=== PATIENT | male | born 2000 | race Caucasian/White ===

== ENCOUNTER 2023-01-28 10:35 | Emergency (ER) | payer BC, SELFPAY ==
[2023-01-28 10:42] VITALS: BP 108/62; PULSE 94; RESP 16; TEMP 36.8; O2SAT 99
--- NOTE | 2023-01-28 11:35 | ED.GENADULT ---
HPI - General Adult General Chief complaint: Upper Respiratory Infection Stated complaint: Cough/Sore Throat Source: patient Mode of arrival: ambulatory Limitations: no limitations History of Present Illness HPI narrative: Patient presents for evaluation of sick symptoms for the last 4 days. Symptoms include productive cough of yellow sputum and sore throat. No chills, nausea, vomiting, diarrhea, SOB. No recent sick contacts to his knowledge. Does use an electronic cigarette and also smokes marijuana. He has been using a throat spray which sounds to be chloraseptic for his symptoms. Related Data Home Medications Medication Instructions Recorded Confirmed No Home Medications 01/28/23 01/28/23 Allergies Allergy/AdvReac Type Severity Reaction Status Date / Time No Known Allergies Allergy Unverified 06/13/20 16:39 Review of Systems Review of Systems: CONSTITUTIONAL: Denies fever, chills, or sweats. EYES: Denies visual changes, redness, or discharge. ENT: Reports sore throat. Denies rhinorrhea, congestion, or otalgia. CARDIOVASCULAR: Denies chest pain, palpitations, or edema. RESPIRATORY: Reports cough. Denies SOB. GASTROINTESTINAL: Denies abdominal pain, nausea, vomiting, or diarrhea. GENITOURINARY: Denies dysuria or hematuria. SKIN: Denies rash or itching. MUSCULOSKELETAL: Denies back pain, joint pain, or myalgia. NEUROLOGIC: Denies headache, numbness, dizziness, or weakness. PSYCHIATRIC: Denies anxiety or depression. PMFSH Past Medical History Medical History No pertinent past medical history Surgical History Surgical History No pertinent past surgical history Family History Family History (Updated 01/28/23 @ 11:39 by Jose Darden, [facility], ) Mother Family history non-contributory Social History Social History Smoking status: Current every day smoker Tobacco type: e-cigarettes/vaping Alcohol intake: never Substance use: current Substance use type: marijuana Gender identity (if verbalized by the patient): Male Spiritual care concerns: No Exam Narrative: GENERAL: Well-appearing, well-nourished, and in no acute distress. HEAD: Normocephalic, atraumatic. EYES: PERRLA and EOMI. ENT: Nares clear, no rhinorrhea or epistaxis. Mucous membranes moist. Oropharynx without tonsillar hypertrophy exudate or other lesions. Bilateral TMs pearly sorto nonbulging NECK: Supple. No adenopathy or masses. No carotid bruits or JVD CHEST: Clear to auscultation. No respiratory distress. No wheezes rales or rhonchi HEART: Regular rate and rhythm. No murmur heard. Normal peripheral pulses. ABDOMEN: Soft, nontender, nondistended, normal active bowel sounds. EXTREMITIES: Normal range of motion. No edema. SKIN: Warm, dry, no rash. NEURO: No focal deficits. Alert and oriented x3. PSYCH: Normal mood and affect. Course Course Emergency Course: This is a 22-year-old male who presented for evaluation of cough and sore throat. Strep, COVID, influenza were all negative. Exam is consistent with acute viral syndrome. Increase hydration. Advised smoking cessation. Mucinex DM may help with current symptoms. Follow up with primary provider. Go to the ER for worsening symptoms. Pt in agreement with plan of care. Level of Care: Express Care Visit Vital Signs Vital signs: Vital Signs Temperature 36.8 C 01/28/23 10:42 Pulse Rate 94 01/28/23 10:42 Respiratory Rate 16 01/28/23 10:42 Blood Pressure 108/62 01/28/23 10:42 Pulse Oximetry 99 01/28/23 10:42 Oxygen Delivery Room Air 01/28/23 10:42 Temperature 36.8 C 01/28/23 10:42 Pulse Rate 94 01/28/23 10:42 Respiratory Rate 16 01/28/23 10:42 Blood Pressure 108/62 01/28/23 10:42 Pulse Oximetry 99 01/28/23 10:42 Oxygen Delivery Ro
== END 2023-01-28 11:40 | disposition home or self-care (01) ==
PROVIDERS: Emergency Provider Nurse Practitioner
DX: B34.9 Viral infection, unspecified (principal); Z20.822 Contact with and (suspected) exposure to COVID-19; F17.290 Nicotine dependence, other tobacco product, uncomplicated; F12.90 Cannabis use, unspecified, uncomplicated
CPT/HCPCS: 87081; 87426; 87804; 87880; 99213; C9803; G0463

== ENCOUNTER 2023-02-28 10:59 | Emergency (ER) | payer BC, SELFPAY ==
[2023-02-28 11:05] VITALS: BP 110/74; PULSE 75; RESP 16; TEMP 36.4; O2SAT 100
--- NOTE | 2023-02-28 11:11 | ED.EYEPROB ---
HPI - Eye Problem General Chief complaint: Eye Problems Stated complaint: Left Eye Irritation Source: patient and RN notes reviewed History of Present Illness HPI Narrative: 22 yo M presents to urgent care with complaints of left eye irritation. Pt states it started yesteday and he thought he had something in his eye. Pt states he woke up with no FB sensation and also states his left eye was matted shut. Denies any visual disturbance, fevers, chills, eye pain, or other symptoms. Related Data Allergies Allergy/AdvReac Type Severity Reaction Status Date / Time No Known Allergies Allergy Unverified 06/13/20 16:39 Review of Systems Review of Systems: CONSTITUTIONAL: Denies fever, chills, or sweats. EYES: Left eye irritation ENT: Denies otalgia and sore throat CARDIOVASCULAR: Denies chest pain, palpitations, or edema. RESPIRATORY: Denies cough or dyspnea. GASTROINTESTINAL: Denies abdominal pain, nausea, vomiting, or diarrhea. GENITOURINARY: Denies dysuria or hematuria. SKIN: Denies rash or itching. MUSCULOSKELETAL: Denies back pain, joint pain, or myalgia. NEUROLOGIC: Denies headache, numbness, or weakness. Pertinent positives per HPI. PMFSH Past Medical History Medical History No pertinent past medical history Surgical History Surgical History No pertinent past surgical history Family History Family History (Updated 01/28/23 @ 11:39 by Jose Darden [facility], ) Mother Family history non-contributory Social History Social History Smoking status: Current every day smoker Tobacco type: e-cigarettes/vaping Alcohol intake: never Substance use: current Substance use type: marijuana Gender identity (if verbalized by the patient): Male Spiritual care concerns: No Comments At the time of my signature, I reviewed and agree with the nursing past medical, surgical, social, and family history. There is no relevant family history pertinent to the patient complaint. Exam Narrative: GENERAL: This is a well-nourished, well-developed patient, in no apparent distress. HEAD: normocephalic, atraumatic. EYES:Left lower conjunctiva injected with dried green drainage to lower lash line. Mild erythema noted to sclera. Mild edema to upper left lid. EARS: External ears normal, auditory canals clear and without drainage, TMs normal without perforation. Hearing grossly intact. NOSE: External nose normal with no obvious nasal discharge, nares without redness, no rhinorrhea. THROAT: Mucous membranes moist, posterior pharynx clear. NECK: Neck supple, non-tender without lymphadenopathy, masses or thyromegaly. CARDIOVASCULAR: Regular rate RESPIRATORY:No respiratory distress SKIN: warm, intact with no suspicious lesions or rash, good texture and turgor. NEURO: awake, alert, and oriented to person, place and time. There were no obvious focal neurologic abnormalities. Course Course Level of Care: Express Care Visit Vital Signs Vital signs: Vital Signs Temperature 97.5 F L 02/28/23 11:05 Pulse Rate 75 02/28/23 11:05 Respiratory Rate 16 02/28/23 11:05 Blood Pressure 110/74 02/28/23 11:05 Pulse Oximetry 100 02/28/23 11:05 Oxygen Delivery Room Air 02/28/23 11:05 Temperature 97.5 F L 02/28/23 11:05 Pulse Rate 75 02/28/23 11:05 Respiratory Rate 16 02/28/23 11:05 Blood Pressure 110/74 02/28/23 11:05 Pulse Oximetry 100 02/28/23 11:05 Oxygen Delivery Room Air 02/28/23 11:05 reviewed MDM - Eye Problem MDM Narrative Medical decision making narrative: Your exam today shows Conjunctivitis, You have been given a prescription for eye drops. Use the eye drops as instructed. If you are not better in two (2) days, you need to follow up with an safety tech. Do not rub the eye or put anything
== END 2023-02-28 11:18 | disposition home or self-care (01) ==
PROVIDERS: Emergency Provider Nurse Practitioner Family
DX: H10.9 Unspecified conjunctivitis (principal); F17.290 Nicotine dependence, other tobacco product, uncomplicated; F12.90 Cannabis use, unspecified, uncomplicated
CPT/HCPCS: 99213; G0463

== ENCOUNTER 2023-04-16 11:07 | Emergency (ER) | payer BC, SELFPAY ==
[2023-04-16 11:15] VITALS: BP 140/76; PULSE 100; RESP 18; TEMP 37.4; O2SAT 100
--- NOTE | 2023-04-16 11:44 | ED.GENADULT ---
HPI - General Adult General Chief complaint: Upper Respiratory Infection Stated complaint: hurts to swallow Source: patient, RN notes reviewed and old records reviewed Mode of arrival: ambulatory Limitations: no limitations History of Present Illness HPI narrative: 20-year-old male presents to Express Care with complaint sore throat, swollen lymph nodes, and swelling on outer right and this started 3 days ago. Patient not taking anything for symptoms. MD complaint: sore throat Onset (ago): day(s) (3-4) Related Data Home Medications Medication Instructions Recorded Confirmed No Home Medications 04/16/23 04/16/23 Allergies Allergy/AdvReac Type Severity Reaction Status Date / Time No Known Allergies Allergy Unverified 04/16/23 11:52 Review of Systems Constitutional: Constitutional: Reports no additional constitutional complaints, Denies body ache(s), Denies chills, Denies fatigue, Denies fever(s) and Denies headache(s) Eyes: Eyes: Reports no additional eye complaints and Denies blurry vision ENT: Reports system reviewed and no additional complaints, except as documented, Denies vertigo, Denies dizziness, Denies ear discharge, Denies otalgia, Denies facial pain, Denies headache(s), Denies nasal congestion, Denies nasal discharge, Denies sinus pain, Denies sinus pressure, Reports sore throat and Reports throat swelling Cardiovascular: Cardiovascular: Reports no additional cardiovascular complaints, Denies chest pain, Denies chest pain at rest, Denies rapid heart rate and Denies dyspnea Respiratory: Respiratory: Reports no additional respiratory complaints, Denies chest congestion, Denies cough, Denies pain on inspiration, Denies pain with cough and Denies dyspnea Gastrointestinal: Gastrointestinal: Denies abdominal pain, Denies diarrhea, Denies nausea and Denies vomiting Integumentary/Breasts: Skin/Breast: Denies rash Neurologic: Reports system reviewed and no additional complaints, except as documented, Denies vertigo, Denies dizziness and Denies headache(s) Endocrine: Endocrine: Denies fatigue PMF Past Medical History Medical History No pertinent past medical history Surgical History Surgical History No pertinent past surgical history Family History Family History Mother Family history non-contributory Social History Social History Smoking status: Current every day smoker Tobacco type: e-cigarettes/vaping Alcohol intake: never Substance use: current Substance use type: marijuana Gender identity (if verbalized by the patient): Male Spiritual care concerns: No Comments At the time of my signature, I reviewed and agree with the nursing past medical, surgical, social, and family history. There is no relevant family history pertinent to the patient complaint. Exam Const: General: cooperative, healthy appearing, no acute distress and well nourished Nutritional Appearance: well nourished Orientation/consciousness: patient oriented x3 Limitations: no limitations HENMT: Head: normal to inspection and normocephalic Ears: external ears normal, TM's normal bilaterally, mastoids normal and Abnormal EAC present Face/Nose/Sinus: normal facial exam Face and sinus: normal facial exam Mouth: Yes Normal oral and palatal mucosa present, Yes oropharynx normal and Yes moist mucous membranes Throat: tonsils normal, uvula midline, posterior oropharynx abnormal erythema and no uvular edema Eyes: General: appearance normal, both eyes and all related structures Sclera: sclerae normal Pupils: Equal, round and reactive pupils present Neck: Neck: lymphadenopathy Resp: Effort & Inspection: normal respiratory effort, able to speak in complete sentences, no audible wheezes, no cough, no r
== END 2023-04-16 12:06 | disposition home or self-care (01) ==
PROVIDERS: Emergency Provider Registered Nurse
DX: J03.90 Acute tonsillitis, unspecified (principal); F17.290 Nicotine dependence, other tobacco product, uncomplicated; F12.90 Cannabis use, unspecified, uncomplicated
CPT/HCPCS: 87081; 87880; 99213; G0463

== ENCOUNTER 2024-09-17 10:41 | Emergency (ER) | payer BC, SELFPAY ==
--- NOTE | ~2024-09-17 | XR_ITS ---
EXAMINATION: XR chest 2V 09/17/2024 13:09 INDICATION: Syncope PROCEDURE: 2 view chest COMPARISON: No prior studies for comparison. FINDINGS: The lungs are clear. The lungs are mildly hyperinflated, which can be associated with react vonnie airway disease. The cardiomediastinal silhouette is within normal limits. There are no pleural effusions. There is no pneumothorax suspected. IMPRESSION: 1: NO ACUTE CARDIOPULMONARY DISEASE. Reviewed, dictated and finalized at location A.
--- OUTSIDE RECORDS SUMMARY | 2024-09-17 10:56 | XMS_ITS | Continuity of Care Document ---
Author Organization [facility] Address [id number] [place] [address] [address] [place] [address] Phone Care Team Providers Care Plant Buyer Name Role Phone Nikolas QUIROZ, Tita Unavailable Unavailable Allergies, Adverse Reactions, Alerts Substance Reaction Status Criticality No Known Allergies Active No Inform ation Medications Medication Instructions Dosage Effective Dates (start - stop) Status Comments Cher 60 mg Tab take 1 tablet (60MG) by oral route 2 times every day - Active Procedures Procedure Date EYE EXAM ESTABLISHED [facility] N/C Glasses Check OFFICE/OUTPATIENT VISIT, EST OFFICE/OUTPATIENT VISIT, EST EYE EXAM & TREATMENT REFRACTION Pt Not Seen Enc Created In Error 2014 OFFICE/OUTPATIENT VISIT, EST SPECIAL EYE EXAM, INITIAL SPECIAL EYE EXAM, INITIAL REFRACTION EYE EXAM ESTABLISHED PAT REFRACTION OFFICE/OUTPATIENT VISIT, NEW REFRACTION Advance Directives Directive Yes / No Effective Date File Name No Information Encounters Encounter Description Practice Location Reason(s) For Visit Diagnoses Date Provider Providers Copied on Encounter [facility], [address] [place] [address] [address], [place], [place], [id number], [place] tel:[phone] OPH CONSULT DIRK MURGUIA Amblyopia OD (chief complaint) Regular astigmatism of both eyesAmblyopia of right eye 3 Nikolas Connorsin. [address], [address], [place], [place], [id number], [place]. tel:[phone] Referring Provider: Rolo Serna, [address] [place], [address]. tel:[phone] [facility], [address] [place] [address], [id number], [place] tel:[phone] OPH CONSULT DIRK MURGUIA amblyopia (chief complaint) Regular astigmatism of both eyesAmblyopia of right eye 0 Connor Tita. [address], [address], [place], [place], [id number], [place]. tel:[phone] Referring Provider: Rolo Serna, [address] [place], [address]. tel:[phone] OFFICE/OUTPA TIENT VISIT, R[facility], [address] [place] [address], [id number], tel:[phone] OPH CONSULT DIRK MURGUIA blurry vision with out glasses (chief complaint) Regular astigmatism of both eyesAmblyopia of right eye 9 Connor Tita. [address], [address], [place], [place], [id number], [place]. tel:[phone] Referring Provider: Sindhu Amador OD, [address], [address] . tel:[phone] OFFICE/OUTPA TIENT VISIT, R[facility], [address] [place] [address], [id number], [place] tel:[phone] OPH CONSULT DIRK MURGUIA itchiness (chief complaint) Blurry VA (chief complaint) Amblyopia of right eyeEncounter for exam of eyeRegular astigmatism of both eyes 8 Connor Tita. [address], [address], [place], [place], [id number], [place]. tel:[phone] Referring Provider: Sindhu Amador OD, [address], [place], [address] . tel:[phone] [facility], [address] [place] [address], [id number], tel:[phone] OPH CONSULT DIRK MURGUIA annual exam (chief complaint) Amblyopia of right eyeEncounter for exam of eye 7 Nikolas Rivers. [address], [address], [place], [place], [id number], [place]. tel:[phone] Referring Provider: Tita Klein, [address], [place], [address] . tel:[phone] [facility], [address] [place] [address], [id number], tel:[phone] OPH CONSULT DIRK MURGUIA blurry vision (chief complaint) No Information 5 Perry OD Sindhu. [address], [address], [place], [place], [id number], [place]. tel:[phone] Referring Provider: Sindhu Amador OD, [address], [place], [address] . tel:[phone] OFFICE/OUTPA TIENT VISIT, [facility], [address] [place] [address], [place], [place], [id number], [place] tel:[phone] [facility] No Information 4 Aleksey Humphrey. [address], [place], [place], [address], [place]. tel:[phone] Referring Provider: Kam Ryder MD P, [address], [place], [address] . tel:[phone] [facility], [address] [place] [address], [id number], [place] tel:[phone] OPH CONSULT DIRK MURGUIA Amblyopia, unspecifiedHy permetropia 3 Nikolas Rivers. [address], [address], [place], [place], [id number], [place]. tel:[phone] Referring Provider: Tita Klein, [address], [place], [address] . tel:[phone] OFFICE/OUTPA TIENT VISIT, [facility], [address], [place], [place], [id number], tel:[phone] OPH CONSULT DIRK MURGUIA Regular astigmatismAm blyopia, unspecified 2 Nikolas Rivers. [address], [address], [place], [place], [id number], [place]. tel:[phone] Referring Provider: Tita Klein, [address], [place], [address] . tel:[phone] Family History Family Member Type Diagnosis Age At Onset No Information Payers Payer name Insurance type Covered constitution party ID Authoriza timu(s) [facility] [id number] Social History Type Description Quantity Date Captured Comments Alcohol Use Details Unknown Caffeine Use Details Unknown Tobacco Use Status Current non-smoker Smoking Status Never smoker Non-Smoking Tobacco Use Details : No Details Available : No Details Available Sex Male Vital Signs Date / Time: Height Weight BMI Pulse Rate Blood Pressure Temperature Respiratory Rate Body Surface Area Head Circumference Head Circ. Percentile Wt./William. Percentile BMI percentile Pulse Ox Inhaled Ox 9:36 AM 68.00 in 68.039 kg (150.00 lbs) 22.8 1 kg/m eter (2) Chief Complaint And Reason For Visit From encounter dated '11/18/2022 09:30'. Amblyopia OD (chief complaint). Description: The 22 year old male presents for evaluation of Amblyopia OD, PT reports that his VA OU might have changed since the last visit, he finds it slightly difficult in reading or watching TV, also finding it difficult to read road signs easily and have to getnear sometimes to be able to see clearly, once in a while has watery eyes, does not use any ATS. Reason For Referral Reason For Referral No Information History Of Present Illness Encounter Date Complaint History Of Prese nt Illness Amblyopia OD The 22 year old male presents for evaluation of Amblyopia OD, PT reports that his VA OU might have changed since the last visit, he finds it slightly difficult in reading or watching TV, also finding it difficult to read road signs easily and have to get near sometimes to be able to see clearly, once in a while has watery eyes, does not use any ATS. amblyopia The 19 year old male presents for 1 year follow up of amblyopia OD. Patient reports no changes in vision or comfort OU since his last visit. Denies seeing any double vision. Pt overall is happy with current Rx and not looking to replace his glasses. blurry vision with out glasses T he 18 year 1 month old male presents for evaluation of blurry vision with out glasses in the right eye and left eye. It started about 1 year(s) ago. The symptom is constant. The condition is significant. The pt states no change in vision. He is happy with glasses only at this time. itchiness Patient presents for OU itchiness during allergy season. The symptom is intermittent and the condition is mild to moderate. Patient takes Cher as needed. Blurry VA Patient presents for blurry VA since the age of [age] gradually worsening over time. Patient would like to know if he is a candidate for LASIK for the near future. Contact lenses are too uncomfortable. annual exam Patient presents for annual exam OD. Patient reports no changes in vision or comfort OU. Patient does not want ctls. Patient would like to use his current frames for new glasses if possible. H/o Amlbyopia OD. blurry vision The 14 year 1 mo nth old male presents for evaluation of blurry vision in the right eye and left eye. It started about 1 year(s) ago. The symptom is constant. The condition is stable. Pt states is having slight trouble with distance since last visit. PT states is diong fine with near vision. Pt states wants updated rx Functional Status Date Functional Assessmen t No Information Instructions Date Instruction Additional Infor mation Impression/Plan Related to Ambly opia of right eye Impression/Plan Related to Regul ar astigmatism of both eyes Impression/Plan Related to Ambly opia of right eye Impression/Plan Related to Regul ar astigmatism of both eyes RTO 1 year for annual exam Relat ed to Regular astigmatism of both eyes Impression/Plan Related to Ambly opia of right eye Impression/Plan Related to Regul ar astigmatism of both eyes Impression/Plan Related to Encou nter for exam of eye Impression/Plan Related to Ambly opia of right eye Impression/Plan Related to Regul ar astigmatism of both eyes Follow up - RTO for yearly Comp. Exam Impression/Plan - No rmal eye exam OU today Related to Encounter for exam of eye Impression/Plan - Up dated glasses Rx given todayDiscussed CL options today - complex. May need glasses over CLs. Related to Amblyopia of right eye Hypermetropia astid ou - stable! Related to Hypermetropia - Return in 1 year w skye Connor OD for Complete Exam. Related to Hypermetropia Amblyopia, OD>OS - S table - ET OD. tried CL at [facility] 2 years ago, didn't like. prefers srx Related to Amblyopia Esotropia, OD/ accom m - No treatment is required at this time. Will continue to observe condition and or symptoms. Amblyopia, OD>OS - S table per roberta exam Related to Amblyopia - Return in 1 year f or Complete Exam, with Tita Connor OD. Myopic Astigmatism, OU - New glasses Rx was given today. Discussed treatment options with patient. Will continue to observe condition and or symptoms. Related to Myopic Astigmatism Assessments Type Assessment Date assessment Regular astigmatism of both eyes impression Regular astigmatism of both eyes : H52.223 assessment Amblyopia of right eye 23 impression Amblyopia of right eye: H53.001 OD Patient Care Teams Name Effective Dates (start - stop) Status Members No Information
--- OUTSIDE RECORDS SUMMARY | 2024-09-17 10:56 | XMS_ITS | Continuity of Care Document ---
Author Organization [facility] Address [address] [place] [address] [address] [place] [address] Phone Care Team Providers Care Network Consultant Name Role Phone Jiménez OD, Bharat Unavailable Unavailable Advance Directives Directive Yes / No Effective Date File Name No Information Encounters Encounter Description Practice Location Reason(s) For Visit Diagnoses Date Provider Providers Copied on Encounter [facility], [address], [place], [place], [id number], [place] tel:[phone] [facility] No Information Mar-0 8-200 5 Jiménez OD Bharat. [address], [place], [address], [place]. tel:[phone] Family History Family Member Type Diagnosis Age At Onset No Information Payers Payer name Insurance type Covered constitution party ID Authoriza tion(s) No Information Social History Type Description Quantity Date Captured Comments Sex Male Smoking Status No Information Chief Complaint And Reason For Visit No Information Reason For Referral Reason For Referral No Information History Of Present Illness Encounter Date Complaint History Of Prese nt Illness No Information Functional Status Date Functional Assessmen t No Information Instructions Date Instruction Additional Infor mation No Information Assessments Type Assessment Date No Information Patient Care Teams Name Effective Dates (start - stop) Status Members No Information
[2024-09-17 11:00] VITALS: BP 105/59; PULSE 102; RESP 16; TEMP 36.4; O2SAT 100
--- NOTE | 2024-09-17 12:51 | ECG_ITS ---
Test Date: 2024-09-17 12:57:00 Measurements Intervals [place] Rate: 71 P: 79 OR: 113 QRS: 83 QRSD: 94 T: 62 QT: 378 QTc: 411 Interpretive Statements SINUS RHYTHM WITH SHORT OR INTERVAL No previous ECG available for comparison Electronically Signed On 09-17-2024 15:10:38 CDT by Jc Mora M.D.
--- NOTE | 2024-09-17 12:53 | PC.NURSE ---
Pt states last night he drank ETOH and used cocaine. Pt states he has not had a syncopal episode after using ETOH and cocaine before.
[2024-09-17 12:56] VITALS: PULSE 74
[2024-09-17 12:58] VITALS: BP 110/77; PULSE 73
[2024-09-17 12:59] VITALS: BP 116/83; PULSE 80
[2024-09-17 13:00] VITALS: BP 122/81; PULSE 91
[2024-09-17 13:35] LABS: Basophils Absolute Auto 0.1 K/mm3 (0.0-0.1); Basophils Percent Auto 0.4 % (0.2-1.2); Eosinophils Absolute Auto 0.1 K/mm3 (0-0.3); Eosinophils Percent Auto 0.6 % (0-4.4); Hematocrit 44.8 % (42.0-52.0); Hemoglobin 15.1 g/dL (14.0-18.0); Immature Granulocyte Absolute 0.11 K/mm3 (0.00-0.031); Immature Granulocyte Percent A 0.7 % (0-0.5); Lymphocytes Absolute Auto 0.86 K/mm3 (0.9-3.2); Lymphocytes Percent Auto 5.1 % (18.3-44.2); Mean Corpuscular HGB Conc 33.7 g/dl (32-36); Mean Corpuscular Hemoglobin 30.4 pg (26-34); Mean Corpuscular Volume 90.1 fl (80-100); Mean Platelet Volume 10.2 fl (7.4-10.4); Monocytes Absolute Auto 1.1 K/mm3 (0.1-0.6); Monocytes Percent Auto 6.8 % (2.6-8.5); Neutrophils Absolute Auto 14.5 K/mm3 (1.3-6.7); Neutrophils Percent Auto 86.4 % (45.5-73.1); Platelet Count Result 240 k/mm3 (150-375); Red Blood Count 4.97 M/mm3 (4.6-6.20); Red Cell Distribution Width 12.1 % (11.5-14.5); White Blood Count 16.8 K/mm3 (4.5-10.0)
[2024-09-17 13:45] LABS: Alanine Aminotransferase 18 U/L (6-50); Albumin Level 4.8 g/dL (3.5-5.1); Alkaline Phosphatase 67 U/L (38-126); Anion Gap 10 mmol/L (4-12); Aspartate Amino Transferase 41 U/L (17-59); Bilirubin,Total 0.7 mg/dL (0.2-1.3); Blood Urea Nitrogen 17 mg/dL (9-20); Calcium 9.5 mg/dL (8.4-10.2); Carbon Dioxide 24 mmol/L (22-30); Chloride 102 mmol/L (98-107); Estimated CRCL calculation 99 ml/min; Estimated Glomerular Filt Rate > 60; Glucose 96 mg/dL (65-110); Sodium 136 mmol/L (137-145)
[2024-09-17] MEDS: SODIUM CHLORIDE 0.9% IV 1,000 ML 999 ML IV CONT (13:58)
--- OUTSIDE RECORDS SUMMARY | 2024-09-17 14:21 | XMS_ITS | Continuity of Care Document ---
Author Organization [facility] Address [id number] [place] [address] [address] [place] [address] Phone Care Team Providers Care Career And Technology Education Teacher Name Role Phone Nikolas QUIROZ, Tita Unavailable Unavailable Allergies, Adverse Reactions, Alerts Substance Reaction Status Criticality No Known Allergies Active No Inform ation Medications Medication Instructions Dosage Effective Dates (start - stop) Status Comments Cher 60 mg Tab take 1 tablet (60MG) by oral route 2 times every day - Active Procedures Procedure Date EYE EXAM ESTABLISHED [facility] N/C Glasses Check OFFICE/OUTPATIENT VISIT, EST OFFICE/OUTPATIENT [...] Provider Providers Copied on Encounter [facility], [address] [place] [address] [address], [place], [place], [id number], [place] tel:[phone] OPH CONSULT DIRK MURGUIA Amblyopia OD (chief complaint) Regular astigmatism of both eyesAmblyopia of right eye 3 Nikolas Connorsin. [address], [address], [place], [place], [id number], [place]. tel:[phone] Referring Provider: Rolo Serna, [address] [place], [address]. tel:[phone] [facility], [address] [place] [address], [id number], [place] tel:[phone] OPH CONSULT DIRK MURGUIA amblyopia (chief complaint) Regular astigmatism of both eyesAmblyopia of right eye 0 Connor Tita. [address], [address], [place], [place], [id number], [place]. tel:[phone] Referring Provider: Rolo Serna, [address] [place], [address]. tel:[phone] OFFICE/OUTPA TIENT VISIT, [facility], [address] [place] [address], [id number], tel:[phone] OPH CONSULT DIRK MURGUIA blurry vision with out glasses (chief complaint) Regular astigmatism of both eyesAmblyopia of right eye 9 Connor Tita. [address], [address], [place], [place], [id number], [place]. tel:[phone] Referring Provider: Sindhu Amador OD, [address], [address] . tel:[phone] OFFICE/OUTPA TIENT VISIT, [facility], [address] [place] [address], [id number], [place] tel:[phone] OPH CONSULT DIRK MURGUIA itchiness (chief complaint) Blurry [place] (chief complaint) Amblyopia of right eyeEncounter for exam of eyeRegular astigmatism of both eyes 8 Connor Tita. [address], [address], [place], [place], [address], [place]. tel:[phone] Referring Provider: Sindhu Amador OD, [address], [place], [address] . tel:[phone] [facility], [address] [place] [address], [id number], tel:[phone] OPH CONSULT DIRK MURGUIA annual exam (chief complaint) Amblyopia of right eyeEncounter for exam of eye 7 Nikolas Rievrs. [address], [address], [place], [place], [id number], [place]. tel:[phone] Referring Provider: Tita Klein, [address], [place], [address] . tel:[phone] [facility], [address] [place] [address], [id number], tel:[phone] OPH CONSULT DIRK MURGUIA blurry vision (chief complaint) No Information 5 Perry OD Sindhu. [address], [address], [place], [place], [address], [place]. tel:[phone] Referring Provider: Sindhu Amador OD, [address], [place], [address] . tel:[phone] OFFICE/OUTPA TIENT VISIT, [facility], [address] [place] [address], [place], [place], [id number], [place] tel:[phone] [facility] No Information 4 Aleksey Humphrey. [address], [place], [place], [id number], [place]. tel:[phone] Referring Provider: Kam Ryder MD P, [address], [place], [address] . tel:[phone] [facility], [address] [place] [address], [id number], [place] tel:[phone] OPH CONSULT DIRK MURGUIA Amblyopia, unspecifiedHy permetropia 3 Nikolas Rivers. [address], [address], [place], [place], [address], [place]. tel:[phone] Referring Provider: Tita Klein, [address], [place], [address] . tel:[phone] OFFICE/OUTPA TIENT VISIT, [facility], [address], [place], [place], [id number], tel:[phone] OPH CONSULT DIRK MURGUIA Regular astigmatismAm blyopia, unspecified 2 Nikolas Rivers. [address], [address], [place], [place], [address], [place]. tel:[phone] Referring Provider: Tita Klein, [address], [place], [address] . tel:[phone] Family History Family Member Type Diagnosis Age At Onset No Information Payers Payer name Insurance type Covered republican ID Authoriza timu(s) [facility] [id number] Social History Type Description Quantity Date Captured [...] astigmatism of both eyes Impression/Plan Related to Regul ar astigmatism of both eyes Impression/Plan Related to Encou nter for exam of eye Impression/Plan Related to Ambly opia of right eye Follow up - RTO for yearly Comp. Exam Impression/Plan - No rmal eye exam OU today Related to Encounter for exam of eye Impression/Plan - Up dated glasses Rx given todayDiscussed CL options today - complex. May need glasses over CLs. Related to Amblyopia of right eye Hypermetropia astid ou - stable! Related to Hypermetropia - Return in 1 year w ith Tita Connor OD for Complete Exam. Related to Hypermetropia Amblyopia, OD>OS - S table - ET OD. tried CL at [facility] 2 years ago, didn't like. prefers srx [...]
--- OUTSIDE RECORDS SUMMARY | 2024-09-17 14:21 | XMS_ITS | Continuity of Care Document ---
Author Organization [facility] Address [address] [place] [address] [address] [place] [address] Phone Care Team Providers Care Body Liner Name Role Phone Jiménez OD, Bharat Unavailable Unavailable Advance Directives Directive Yes / No Effective Date File Name No Information Encounters Encounter Description Practice Location Reason(s) For Visit Diagnoses Date Provider Providers Copied on Encounter [facility], [address], [place], [place], [id number], [place] tel:[phone] [facility] No Information Mar-0 8-200 5 Jiménez OD Bharat. [address], [place], [address], [place]. tel:[phone] Family History Family Member Type Diagnosis Age At Onset No Information Payers Payer name Insurance type Covered democrat ID Authoriza tion(s) No Information Social History [...]
--- NOTE | 2024-09-17 14:43 | ED_ITS ---
HPI - Syncope General Chief Complaint: Syncope Stated Complaint: unwitnessed fall, diaphoretic, pale Time Seen by Provider: 09/17/24 12:54 History of Present Illness HPI narrative: Patient is a 23-year-old male who presents ER after having a syncopal episode at work. He was in the refrigerator when he bent over to grab some fish and then lost consciousness. Reports he did have some dizziness with going from sitting to standing after this syncopal event. He thinks he was unconscious for 10-15 minutes. No history of seizures. No witnessed seizure activity. Patient reports he was drinking heavily last night. Family present in are hoping patient can receive resources for alcohol/drug abuse. Patient has no complaints this time. Patient did not urinate on himself nor bite his tongue. He has some abrasions to his eyebrows bilaterally where his head hit his glasses. Related Data Home Medications ?Medication ?Instructions ?Recorded ?Confirmed ?Last Taken ?Type No Home Medications 04/16/23 04/16/23 Unknown History Allergies Allergy/AdvReac Type Severity Reaction Status Date / Time No Known Allergies Allergy Unverified 04/16/23 11:52 Review of Systems 2 Review of Systems: All systems reviewed & are unremarkable except as noted in HPI and below Constitutional: Constitutional: Reports no additional constitutional complaints ENT: Reports system reviewed and no additional complaints, except as documented Cardiovascular: Cardiovascular: Reports no additional cardiovascular complaints Respiratory: Respiratory: Reports no additional respiratory complaints Neurologic: Reports system reviewed and no additional complaints, except as documented [facility] Past Medical History Medical History No pertinent past medical history Surgical History Surgical History No pertinent past surgical history Family History Family History Mother Family history non-contributory Social History Social History Smoking status: Current every day smoker Tobacco type: e-cigarettes/vaping Alcohol intake: never Substance use: current Substance use type: marijuana Gender identity (if verbalized by the patient): Male Spiritual care concerns: No Exam 2 Narrative: GENERAL: Well-appearing, well-nourished, and in no acute distress. HEAD: Normocephalic, atraumatic. EYES: PERRL and EOMI. Vertical abrasions bilaterally at the medial eyebrows from striking his glasses. ENT: Mucous membranes moist. CHEST: Clear to auscultation. No respiratory distress. HEART: Regular rate and rhythm. Normal peripheral pulses. ABDOMEN: Soft, nontender, nondistended. EXTREMITIES: Normal range of motion. No edema. SKIN: Warm, dry, no rash. NEURO: Alert and oriented x3. PSYCH: Normal mood and affect. Course Course Emergency Course: Resting comfortably. Hydrated. Resources provided. Appropriate for discharge home. Nonspecific leukocytosis. Normal electrolytes and renal function. EKG without arrhythmia or heart block. Chest x-ray normal. Vital Signs Vital signs: Vital Signs Temperature 97.6 F 09/17/24 11:00 Pulse Rate 102 H 09/17/24 11:00 Respiratory Rate 16 09/17/24 11:00 Blood Pressure 105/59 L 09/17/24 11:00 Pulse Oximetry 100 09/17/24 11:00 Oxygen Delivery Room Air 09/17/24 11:00 Temperature 97.6 F 09/17/24 11:00 Pulse Rate 91 09/17/24 13:00 Respiratory Rate 16 09/17/24 11:00 Blood Pressure 122/81 09/17/24 13:00 Pulse Oximetry 100 09/17/24 11:00 Oxygen Delivery Room Air 09/17/24 11:00 MDM - Syncope Lab Data 09/17/24 13:28 09/17/24 13:28 Labs: Lab Results 09/17/24 Range/Units 13:28 WBC 16.8 H (4.5-10.0) K/mm3 RBC 4.97 (4.6-6.20) M/mm3 Hgb 15.1 (14.0-18.0) g/dL Hct 44.8 (42.0-52.0) % MCV 90.1 (80-100) fl MCH 30.4 (26-34) pg MCHC 33.7 (32-36) g/dl RDW 12.1 (11.5-14.5) % Plt Count 240 (150-375) k/mm3 MPV 10.2 (7.4-10.4) fl Immature Gran % (Auto) 0.7 H (0-0.5) % Neut % (Auto) 86.4 H (45.5-73.1) % Lymph % (Auto) 5.1 L (18.3-44.2) % Wilson % (Auto) 6.8 (2.6-8.5) % Eos % (Auto) 0.6 (0-4.4) % Baso % (Auto) 0.4 (0.2-1.2) % Lymph # (Auto) 0.86 L (0.9-3.2) K/mm3 Wilson # (Auto) 1.1 H (0.1-0.6) K/mm3 Eos # (Auto) 0.1 (0-0.3) K/mm3 Baso # (Auto) 0.1 (0.0-0.1) K/mm3 Abs Immat Gran (auto) 0.11 H (0.00-0.031) K/mm3 Absolute Neuts (auto) 14.5 H (1.3-6.7) K/mm3 Absolute Nucleated RBC 0.000 (0.0-0.012) K/mm3 Nucleated RBC % 0.0 (0.0-0.2) % Sodium 136 L (137-145) mmol/L Potassium 4.0 (3.4-5.0) mmol/L Chloride 102 (98-107) mmol/L Carbon Dioxide 24 (22-30) mmol/L Anion Gap 10 (4-12) mmol/L BUN 17 (9-20) mg/dL Creatinine 0.88 (0.7-1.3) mg/dL Estim Creat Clear Calc 99 ml/min Estimated GFR > 60 (59 - ) Glucose 96 (65-110) mg/dL Calcium 9.5 (8.4-10.2) mg/dL Total Bilirubin 0.7 (0.2-1.3) mg/dL AST 41 (17-59) U/L ALT 18 (6-50) U/L Alkaline Phosphatase 67 (38-126) U/L Total Protein 8.0 (6.3-8.2) g/dL Albumin 4.8 (3.5-5.1) g/dL Imaging Data Radiologist's impression: ITS Impressions Chest X-Ray 09/17/24 13:12 IMPRESSION: 1: NO ACUTE CARDIOPULMONARY DISEASE. ECG Data EKG #1: ECG completion date: 09/17/24 ECG completion time: 12:57 EKG Interpretation: normal rate (71), sinus rhythm, normal QRS, normal QT and NL axis Discharge Plan Discharge Clinical Impression: Syncope Patient Disposition: Home Condition: Stable Instructions: Syncope (ED) Additional Instructions: Please return to the emergency department if you develop severe and persistent chest pain, difficulty breathing, dizziness, leg swelling or if you are coughing up blood as these can be signs of a medical emergency. Please call your doctor for a follow up appointment to determine the need for further testing. Patient Language: Moroccan Prescriptions: No Action No Home Medications Follow-up/Referrals: Jignesh Baeza MD [Physician] - 1 Week UNKNOWN,DOCTOR [Primary Care Provider] -
[2024-09-17 15:09] VITALS: BP 120/76; PULSE 64; RESP 16; TEMP 36.6; O2SAT 100
== END 2024-09-17 15:13 | disposition home or self-care (01) ==
PROVIDERS: Emergency Provider Emergency Medicine
DX: R55 Syncope and collapse (principal)
CPT/HCPCS: 36415; 71046; 80053; 85025; 93005; 96360; 99284; J7030